=== PATIENT | female | born 1985 | race Caucasian/White ===

== ENCOUNTER 2016-08-08 20:26 | Emergency (ER) | payer OTHER ==
[~2016-08-08] VITALS: Ht 175.3 cm; Wt 143.1 kg
[~2016-08-08 20:26] MED LIST: ALLEGRA ALLERG180 MG PO; AUGMENTIN875 MG PO; BENTYL20 MG PO; CEPHALEXIN500 MG PO; ELAVIL10 MG PO; FIORICET,ESG1 TABLET PO; FLONASE16 G1 BOTH NARES; GABAPENTIN300 MG PO; HYDROCODON-ACE1 EAC7 PO; INDOCIN25 MG PO; IUD; LORTAB 5-325 M1 EACH PO; MOTRIN IB200 MG PO; MOTRIN600 MG PO; MOTRIN800 MG PO; NAPROSYN500 MG PO; NECON1 EAC1 PO; NORCO 5/3251 TABLET PO; NORCO 7.5/321 TABLET PO; OMEPRAZOLE20 MG PO; PERCOCET 5/31 TABLET PO; PREDNISONE10 MG PO; PROAIR HFA8.5 GM IH; SINGULAIR10 MG PO; TRAMADOL HCL50 MG PO; TRAZODONE HCL50 MG PO; TYLENOL WITH C1 EACH PO; ZOFRAN ODT4 MG PO; ZOFRAN ODT8 MG PO; ZOFRAN4 MG PO
[2016-08-08] MEDS ORDERED: KEFLEX500 MG PO (22:56)
[2016-08-08 23:17] VITALS: BP 121/92
== END 2016-08-08 23:26 | disposition home or self-care (01) ==
LOC: EME 20:26
DX: T81.4XXA Infection following a procedure, initial encounter (principal); L03.116 Cellulitis of left lower limb; J45.909 Unspecified asthma, uncomplicated; F17.200 Nicotine dependence, unspecified, uncomplicated
CPT/HCPCS: 99281; 99283

== ENCOUNTER 2016-08-11 22:52 | Emergency (ER) | payer OTHER ==
[~2016-08-11] VITALS: Ht 175.3 cm; Wt 141.3 kg
[~2016-08-11 22:52] MED LIST changes: +KEFLEX500 MG PO
[2016-08-12] MEDS ORDERED: PERCOCET 5/31 TABLET PO (01:41)
[2016-08-12] MEDS ORDERED: CLEOCIN300 MG PO (01:41)
[2016-08-12 01:49] VITALS: BP 145/79
== END 2016-08-12 01:54 | disposition home or self-care (01) ==
LOC: EME 22:52
DX: G89.18 Other acute postprocedural pain (principal); M79.672 Pain in left foot; J45.909 Unspecified asthma, uncomplicated; K21.9 Gastro-esophageal reflux disease without esophagitis; F17.200 Nicotine dependence, unspecified, uncomplicated
CPT/HCPCS: 99281; 99284

== ENCOUNTER 2016-09-18 07:43 | Emergency (ER) | payer OTHER ==
[~2016-09-18] VITALS: Ht 175.3 cm; Wt 143.2 kg
[~2016-09-18 07:43] MED LIST changes: +CLEOCIN300 MG PO
[2016-09-18] MEDS ORDERED: MEDROL DOSEPAK4 MG PO (08:07)
[2016-09-18 08:26] VITALS: BP 149/80
== END 2016-09-18 08:28 | disposition home or self-care (01) ==
LOC: EME 07:43
DX: L27.0 Generalized skin eruption due to drugs and medicaments taken internally (principal); T36.95XA Adverse effect of unspecified systemic antibiotic, initial encounter; T37.8X5A Adverse effect of other specified systemic anti-infectives and antiparasitics, initial encounter; J45.909 Unspecified asthma, uncomplicated; K21.9 Gastro-esophageal reflux disease without esophagitis; F32.9 Major depressive disorder, single episode, unspecified; F17.200 Nicotine dependence, unspecified, uncomplicated
CPT/HCPCS: 99281; 99284

== ENCOUNTER 2017-03-12 18:18 | Emergency (ER) | payer BC ==
[~2017-03-12] VITALS: Ht 175.3 cm; Wt 137.4 kg
[~2017-03-12 18:18] MED LIST changes: +MEDROL DOSEPAK4 MG PO
[2017-03-12 19:35] LABS: HEMATOCRIT 35.8 % (36.0-46.0); MCH 29.3 PG (29.0-34.0); MCHC 34.6 G/DL (30.0-36.0); MCV 84.6 FL (83-99); MEAN PLAT.VOLUME 10.5 uM^3 (9.5-12.4); PLATELET COUNT 208 K/uL (156-360); RBC DIS.WIDTH-SD 36.5 % (39-53); RED BLOOD COUNT 4.23 M/uL (3.80-5.20); WHITE BLOOD COUNT 8.9 K/uL (4.1-10.2)
[2017-03-12 19:44] LABS: CHLORIDE 109 mEq/L (99-109); SODIUM 141 mEq/L (136-147)
[2017-03-12 19:46] LABS: GLUCOSE 89 mg/dL (70-99)
[2017-03-12 19:47] LABS: ANION GAP 11 MEQ/L (2-14)
[2017-03-12 19:48] LABS: TOTAL BILIRUBIN 0.3 mg/dL (0.0-1.0)
[2017-03-12 19:49] LABS: ALKALINE PHOSPHATASE 49 IU/L (3-129)
[2017-03-12 19:50] LABS: GFR ESTIMATE (CALCULATED) > 59 mL/min/
[2017-03-12 19:51] LABS: UREA NITROGEN (BUN) 14 mg/dL (9-23)
[2017-03-12 19:58] LABS: QUANTITATIVE HCG < 4.0 MIU/ML
[2017-03-12 20:25] LABS: ADD MIUA? YES; BILIRUBIN NEGATIVE; BLOOD MODERATE; COLOR STRAW ((YELLOW)); GLUCOSE (STRIP) NEGATIVE; KETONES NEGATIVE; LEUKOCYTES NEGATIVE; NITRITE NEGATIVE; PROTEIN (STRIP) NEGATIVE; SPECIFIC GRAVITY 1.009 (1.000-1.030); UROBILINOGEN 0.2 MG/DL (0.2-1.0)
[2017-03-12 20:27] LABS: BACTERIA NONE SEEN /HPF; EPITHELIAL CELLS RARE /HPF; MUCUS NONE SEEN /LPF; RED BLOOD CELLS 0-5 /HPF (0-5); UCUL ADDED? NO; WHITE BLOOD CELLS 0-5 /HPF (0-5)
[2017-03-12] MEDS ORDERED: ZOFRAN ODT4 MG PO (20:56)
[2017-03-12] MEDS ORDERED: ULTRAM50 MG PO (20:56)
[2017-03-12] MEDS ORDERED: PERCOCET 5/31 TABLET PO (21:03)
[2017-03-12 21:08] VITALS: BP 130/87
== END 2017-03-12 21:08 | disposition home or self-care (01) ==
LOC: EME 18:18
DX: N93.9 Abnormal uterine and vaginal bleeding, unspecified (principal); N70.11 Chronic salpingitis; K21.9 Gastro-esophageal reflux disease without esophagitis; J45.909 Unspecified asthma, uncomplicated; Z90.49 Acquired absence of other specified parts of digestive tract; F17.200 Nicotine dependence, unspecified, uncomplicated
CPT/HCPCS: 76856; 80053; 81003; 84702; 85027; 99281; 99284

== ENCOUNTER 2017-03-15 10:23 | Emergency (ER) | payer BC ==
[~2017-03-15] VITALS: Ht 175.3 cm; Wt 143.0 kg
[~2017-03-15 10:23] MED LIST changes: +ULTRAM50 MG PO
[2017-03-15 11:41] LABS: HEMATOCRIT 36.1 % (36.0-46.0); MCH 28.8 PG (29.0-34.0); MCHC 33.5 G/DL (30.0-36.0); MEAN PLAT.VOLUME 10.4 uM^3 (9.5-12.4); PLATELET COUNT 190 K/uL (156-360); RBC DIS.WIDTH-SD 37.6 % (39-53); WHITE BLOOD COUNT 6.6 K/uL (4.1-10.2)
[2017-03-15 11:49] LABS: ADD MIUA? NO; BILIRUBIN NEGATIVE; BLOOD NEGATIVE; COLOR YELLOW ((YELLOW)); GLUCOSE (STRIP) NEGATIVE; KETONES NEGATIVE; LEUKOCYTES NEGATIVE; NITRITE NEGATIVE; PROTEIN (STRIP) NEGATIVE; SPECIFIC GRAVITY 1.018 (1.000-1.030); UROBILINOGEN 0.2 MG/DL (0.2-1.0)
[2017-03-15 11:50] LABS: UCUL ADDED? NO
[2017-03-15 11:51] LABS: CHLORIDE 106 mEq/L (99-109); SODIUM 139 mEq/L (136-147)
[2017-03-15 11:53] LABS: GLUCOSE 97 mg/dL (70-99)
[2017-03-15 11:54] LABS: ANION GAP 9 MEQ/L (2-14)
[2017-03-15 11:57] LABS: ALKALINE PHOSPHATASE 49 IU/L (3-129); GFR ESTIMATE (CALCULATED) > 59 mL/min/; TOTAL BILIRUBIN 0.2 mg/dL (0.0-1.0)
[2017-03-15 11:58] LABS: UREA NITROGEN (BUN) 15 mg/dL (9-23)
[2017-03-15 12:00] LABS: LIPASE 13 U/L (1.0-51.0)
[2017-03-15 12:07] LABS: QUANTITATIVE HCG < 4.0 MIU/ML
[2017-03-15] MEDS ORDERED: PERCOCET 5/31 TABLET PO (16:45)
[2017-03-15 17:09] VITALS: BP 127/80
[2017-03-16 14:37] LABS: CHLAMYDIA TRACHOMATIS NEGATIVE; NEISSERIA GONORRHOEAE NEGATIVE
== END 2017-03-15 17:09 | disposition home or self-care (01) ==
LOC: EME 10:23
PROVIDERS: Physician Assistant Medical
DX: N93.8 Other specified abnormal uterine and vaginal bleeding (principal); J45.909 Unspecified asthma, uncomplicated; K21.9 Gastro-esophageal reflux disease without esophagitis; F17.200 Nicotine dependence, unspecified, uncomplicated
CPT/HCPCS: 74177; 76856; 80053; 81003; 83690; 84702; 85027; 87210; 87491; 87591; 99281; 99284; J1885; J2270; J2405; J7030

== ENCOUNTER 2017-06-12 19:02 | Emergency (ER) | payer BC ==
[~2017-06-12] VITALS: Ht 175.3 cm; Wt 135.4 kg
[2017-06-12 20:27] LABS: HEMATOCRIT 38.3 % (36.0-46.0); MCH 29.1 PG (29.0-34.0); MCV 83.3 FL (83-99); MEAN PLAT.VOLUME 10.3 uM^3 (9.5-12.4); PLATELET COUNT 221 K/uL (156-360); RBC DIS.WIDTH-CV 11.9 % (11.8-14.6); RBC DIS.WIDTH-SD 35.9 % (39-53); WHITE BLOOD COUNT 9.4 K/uL (4.1-10.2)
[2017-06-12 20:39] LABS: CHLORIDE 106 mEq/L (99-109); POTASSIUM 3.8 mEq/L (3.7-5.4); SODIUM 141 mEq/L (136-147)
[2017-06-12 20:41] LABS: GLUCOSE 96 mg/dL (70-99)
[2017-06-12 20:42] LABS: ANION GAP 12 MEQ/L (2-14)
[2017-06-12 20:43] LABS: TOTAL BILIRUBIN 0.2 mg/dL (0.0-1.0)
[2017-06-12 20:45] LABS: ALKALINE PHOSPHATASE 47 IU/L (3-129); GFR ESTIMATE (CALCULATED) > 59 mL/min/
[2017-06-12 20:46] LABS: UREA NITROGEN (BUN) 10 mg/dL (9-23)
[2017-06-12 20:53] LABS: QUANTITATIVE HCG < 4.0 MIU/ML
[2017-06-12 20:53] LABS: ADD MIUA? NO; BILIRUBIN NEGATIVE; BLOOD NEGATIVE; COLOR STRAW ((YELLOW)); GLUCOSE (STRIP) NEGATIVE; KETONES NEGATIVE; LEUKOCYTES NEGATIVE; NITRITE NEGATIVE; PROTEIN (STRIP) NEGATIVE; SPECIFIC GRAVITY 1.005 (1.000-1.030); UCUL ADDED? NO; UROBILINOGEN 0.2 MG/DL (0.2-1.0)
[2017-06-12] MEDS ORDERED: NORCO 5/3251 TABLET PO (23:44)
[2017-06-13 00:28] VITALS: BP 110/58
== END 2017-06-13 00:30 | disposition home or self-care (01) ==
LOC: EXP 19:02 → EME 19:02 → EXP 06-13 00:30
DX: N83.201 Unspecified ovarian cyst, right side (principal); K21.9 Gastro-esophageal reflux disease without esophagitis; J45.909 Unspecified asthma, uncomplicated; F32.9 Major depressive disorder, single episode, unspecified; Z90.49 Acquired absence of other specified parts of digestive tract; F17.200 Nicotine dependence, unspecified, uncomplicated; Z88.0 Allergy status to penicillin; Z88.1 Allergy status to other antibiotic agents; Z88.8 Allergy status to other drugs, medicaments and biological substances
CPT/HCPCS: 74177; 76856; 80053; 81003; 84702; 85027; 99281; 99285; J1885; J2405

== ENCOUNTER 2017-11-22 05:55 | Observation (INO) | payer BC ==
[~2017-11-22] VITALS: Ht 175.3 cm; Wt 141.2 kg
[2017-11-22 07:00] LABS: BASOPHIL (%) 0.1 % (0-1); EOSINOPHIL (%) 0.3 % (0-5); HEMATOCRIT 44.1 % (36.0-46.0); HEMOGLOBIN 15.1 G/DL (11.9-15.5); IMMATURE GRANULOCYTE (%) 0.6 % (0.0-0.7); LYMPHOCYTE (%) 11.3 % (15-42); LYMPHOCYTE COUNT 1.8 K/uL (1.0-2.8); MCH 29.4 PG (29.0-34.0); MCHC 34.2 G/DL (30.0-36.0); MCV 85.8 FL (83-99); MONOCYTE (%) 2.8 % (3-12); MONOCYTE COUNT 0.5 K/uL (0-0.8); NEUTROPHIL (%) 84.9 % (45-76); NEUTROPHIL COUNT 13.4 K/uL (1.8-6.4); PLATELET COUNT 220 K/uL (156-360); RBC DIS.WIDTH-CV 12.2 % (11.8-14.6); RBC DIS.WIDTH-SD 38.2 % (39-53); RED BLOOD COUNT 5.14 M/uL (3.80-5.20); WHITE BLOOD COUNT 15.8 K/uL (4.1-10.2)
[2017-11-22 07:24] LABS: TROP-I INTERPRETATION NEGATIVE; TROPONIN-I 0.06 ng/mL (0.0-0.30)
[2017-11-22 07:26] LABS: CHLORIDE 106 MEQ/L (99-109); CREATININE 0.9 MG/DL (0.6-1.3); GFR ESTIMATE (CALCULATED) > 59 mL/min/; GLUCOSE 113 mg/dL (70-99); POTASSIUM 3.7 MEQ/L (3.7-5.4); SODIUM 138 MEQ/L (136-147); UREA NITROGEN (BUN) 18 mg/dL (9-23)
[2017-11-22] MEDS ORDERED: ZYRTEC10 M3 PO (08:44)
[2017-11-22] MEDS ORDERED: BENADRYL ALLERG25 MG PO (08:45)
[2017-11-22] MEDS ORDERED: PROBIOTIC1 EAC1 PO (08:46)
[2017-11-22] MEDS ORDERED: TYLENOL325 M2 PO (08:46)
[2017-11-22] MEDS ORDERED: ADVIL,NUPRIN,M200 MG PO (08:46)
[2017-11-22] MEDS ORDERED: GLUCOSAMINE &1 EAC1 PO (08:47)
[2017-11-22 10:22] VITALS: BP 116/57
[2017-11-22 11:03] VITALS: BP 112/56
[2017-11-22 11:05] LABS: APPEARANCE SL.HAZY ((CLEAR)); BILIRUBIN NEGATIVE; BLOOD NEGATIVE; COLOR YELLOW ((YELLOW)); GLUCOSE (STRIP) NEGATIVE; KETONES NEGATIVE; LEUKOCYTES NEGATIVE; NITRITE NEGATIVE; PROTEIN (STRIP) NEGATIVE; UROBILINOGEN 0.2 MG/DL (0.2-1.0)
[2017-11-22 11:12] LABS: BACTERIA RARE /HPF; EPITHELIAL CELLS RARE /HPF; HYALINE CASTS 0-5 /LPF; MUCUS TRACE /LPF; RED BLOOD CELLS 0-5 /HPF (0-5); UCUL ADDED? NO; WHITE BLOOD CELLS 0-5 /HPF (0-5)
[2017-11-22 16:03] VITALS: BP 114/58
[2017-11-22 16:04] VITALS: BP 109/59; BP 113/55
[2017-11-22 19:37] VITALS: BP 117/58
[2017-11-22 23:55] VITALS: BP 109/55
[2017-11-23 03:38] VITALS: BP 125/60
[2017-11-23 07:46] VITALS: BP 111/56
[2017-11-23 09:32] LABS: ALBUMIN 3.5 G/DL (3.2-4.8); ALKALINE PHOSPHATASE 40 IU/L (3-129); ALT (GPT) 12 IU/L (3-49); AST (GOT) 11 IU/L (2-34); CHLORIDE 108 MEQ/L (99-109); CREATININE 0.6 MG/DL (0.6-1.3); GFR ESTIMATE (CALCULATED) > 59 mL/min/; GLUCOSE 106 mg/dL (70-99); POTASSIUM 4.1 MEQ/L (3.7-5.4); SODIUM 140 MEQ/L (136-147); TOTAL BILIRUBIN 0.3 MG/DL (0.0-1.0); TOTAL PROTEIN 6.2 G/DL (6.4-8.3); UREA NITROGEN (BUN) 8 mg/dL (9-23)
[2017-11-23 10:53] LABS: HEMATOCRIT 34.9 % (36.0-46.0); MCH 29.6 PG (29.0-34.0); MCHC 33.8 G/DL (30.0-36.0); MCV 87.7 FL (83-99); PLATELET COUNT 165 K/uL (156-360); RBC DIS.WIDTH-CV 12.2 % (11.8-14.6); RBC DIS.WIDTH-SD 39.3 % (39-53); WHITE BLOOD COUNT 7.3 K/uL (4.1-10.2)
[2017-11-23 10:55] LABS: HEMOGLOBIN 11.8 G/DL (11.9-15.5); RED BLOOD COUNT 3.98 M/uL (3.80-5.20)
== END 2017-11-23 11:20 | disposition home or self-care (01) ==
LOC: EME → EDBD 05:55 → EME 05:55 → EDOF 08:10 → 4SOUTH 08:10 → ENRESERV 08:13 → 4SOUTH 09:30 → ENPENDDIS 11-23 → 4SOUTH 11-23 11:20
PROVIDERS: Emergency Medicine; Hospitalist
DX: I95.1 Orthostatic hypotension (principal); E86.0 Dehydration; R19.7 Diarrhea, unspecified; F32.9 Major depressive disorder, single episode, unspecified; E66.9 Obesity, unspecified; J45.909 Unspecified asthma, uncomplicated; F17.200 Nicotine dependence, unspecified, uncomplicated; G43.909 Migraine, unspecified, not intractable, without status migrainosus; Z90.49 Acquired absence of other specified parts of digestive tract; Z88.0 Allergy status to penicillin; Z88.1 Allergy status to other antibiotic agents
CPT/HCPCS: 70450; 71045; 80048; 80053; 81003; 84484; 85025; 85027; 87493; 93005; 99281; 99284; G0378; J1650; J7030